=== PATIENT | female | born 1965 | race Caucasian/White ===

== ENCOUNTER 2017-01-02 14:45 | Emergency (ER) | payer OTHER ==
[~2017-01-02] VITALS: Ht 167.6 cm; Wt 61.0 kg
[2017-01-02 14:47] VITALS: BP 128/71; PULSE 99; RESP 20; TEMP 98.3; O2SAT 97
--- NOTE | 2017-01-02 15:08 | PD ---
HPI Chief Complaint: Numbness/Tingling Time Seen by Provider: 15:08 Travel History International Travel<30 days: No Contact w/Intl Traveler<30days: No Traveled to known affect area: No History of Present Illness HPI 51-year-old female presents to ED for evaluation of 6 months history of episodic , stabbing chest pain. Occurring both at rest and during exercise. Accompanied by shortness of breath. Immediately relieved by Tums or aspirin. Patient denies radiation of the pain, diaphoresis, nausea or vomiting associated with these episodes. She decided to come to the ED today after beginning to experience left-sided numbness and tingling. She states this was present upon awakening 3 days ago. She called her PCP, Dr. Calhoun, who recommended she come to the ED. The patient states that she has been busy and was only able to make time for the ED today. She denies weakness, limitations to range of motion, difficulties with word finding, facial droop. She is a current smoker. She denies family history of AL. States that she is perimenopausal, infrequent menses. Endorses unprotected sexual activity with a single male partner. PFSH Past Medical History ?: Not LMP: 11/28/16 Social History Tobacco Use: Yes Allergies-Medications (Allergen,Severity, Reaction): Coded Allergies: No Known Allergies (Unverified , 01/02/17) Review of Systems Except as stated in HPI: all other systems reviewed are Neg Physical Exam Narrative GENERAL: Well-nourished, well-developed white female in no acute distress. SKIN: Warm and dry. HEAD: Normocephalic. Atraumatic. EYES: No scleral icterus. No injection or drainage. PERRLA. EOMI. ENT: Pearly shea tympanic membranes bilaterally. Nasal mucosa is moist. Oropharynx without erythema, edema or exudate. NECK: Supple, trachea midline. No JVD or lymphadenopathy. No midline tenderness to palpation. Patient retains full, active, painless range of motion of the neck. CARDIOVASCULAR: Regular rate and rhythm without murmurs, gallops, or rubs. 2+ DP and radial pulses bilaterally. RESPIRATORY: Breath sounds clear and equal bilaterally. No accessory muscle use. GASTROINTESTINAL: Abdomen soft, non-tender, nondistended. + Bowel sounds MUSCULOSKELETAL: No cyanosis, or edema. NEUROLOGICAL: Awake and alert. Cranial nerves II through XII intact. No pronator drift. No difficulties with finger to nose testing. Motor and sensory grossly within normal limits. 5/5 muscle strength in all muscle groups. Normal speech. BACK: Nontender without obvious deformity. No CVA tenderness. No midline tenderness. tenderness. Data Data Last Documented VS Vital Signs Date Time Temp Pulse Resp B/P Pulse Ox O2 Delivery O2 Flow Rate FiO2 01/02/17 14:47 98.3 99 20 128/71 97 Room Air Orders Electrocardiogram (01/02/17 15:28) Basic Metabolic Panel (Bmp) (01/02/17 15:28) Ckmb (Isoenzyme) Profile (01/02/17 15:28) Complete Blood Count With Diff (01/02/17 15:28) Magnesium (Mg) (01/02/17 15:28) Prothrombin Time / Inr (Pt) (01/02/17 15:28) Act Partial Throm Time (Ptt) (01/02/17 15:28) Troponin I (01/02/17 15:28) Chest, Single Ap (01/02/17 15:28) Ct Brain W/O Iv Contrast(Rout) (01/02/17 15:28) Ed Urine Pregnancytest Poc (01/02/17 15:35) CKMB (01/02/17 15:40) CKMB% (01/02/17 15:40) Labs Laboratory Tests Test 01/02/17 15:40 White Blood Count 4.0 TH/MM3 Red Blood Count 3.73 MIL/MM3 Hemoglobin 12.0 GM/DL Hematocrit 35.3 % Mean Corpuscular Volume 94.5 FL Mean Corpuscular Hemoglobin 32.0 PG Mean Corpuscular Hemoglobin 33.9 % Concent Red Cell Distribution Width 13.1 % Platelet Count 211 TH/MM3 Mean Platelet Volume 8.9 FL Neutrophils (%) (Auto) 58.7 % Lymphocytes (%) (Auto) 26.1 % Monocytes (%) (Auto) 11.6 % Eosinophils (%) (Auto) 2.7 % Basophils (%) (Auto) 0.9 % Neutrophils # (Auto) 2.4 TH/MM3 Lymphocytes # (Auto) 1.1 TH/MM3 Monocytes # (Auto) 0.5 TH/MM3 Eosinophils # (Auto) 0.1 TH/MM3 Basophils # (Auto) 0.0 TH/MM3 CBC Comment DIFF FINAL Differential Comment Prothrombin Time 10.5 SEC Prothromb Time International 1.0 RATIO Ratio Activated Partial 26.0 SEC Thromboplast Time Sodium Level 140 MEQ/L Potassium Level 3.7 MEQ/L Chloride Level 105 MEQ/L Carbon Dioxide Level 29.4 MEQ/L Anion Gap 6 MEQ/L Blood Urea Nitrogen 12 MG/DL Creatinine 0.81 MG/DL Estimat Glomerular Filtration 75 ML/MIN Rate Random Glucose 98 MG/DL Calcium Level 8.5 MG/DL Magnesium Level 2.0 MG/DL Total Creatine Kinase 157 U/L Creatine Kinase MB 1.4 NG/ML Troponin I LESS THAN 0.02 NG/ML MDM Medical Decision Making Medical Screen Exam Complete: Yes Emergency Medical Condition: Yes Differential Diagnosis GERD versus angina versus ACS versus ICH versus electrolyte abnormality versus dehydration versus other Narrative Course 51-year-old female presents to ED for evaluation of 6 months history of episodic , stabbing chest pain. Occurring both at rest and during exercise. Accompanied by shortness of breath. Immediately relieved by Tums or aspirin. Denies radiation of the pain, diaphoresis, nausea or vomiting associated with these episodes. She decided to come to the ED today waking with left-sided facial, arm and leg numbness and tingling 3 days ago. She called her PCP, Dr. Calhoun, who recommended she come to the ED. The patient states that she has been busy and was only able to make time for the ED today. She denies weakness , limitations to range of motion, difficulties with word finding, facial droop. She is a current smoker. She denies family history of AL. Vitals reviewed. The patient is tachycardic on presentation but this resolves in the exam room. Physical exam reveals a nontoxic-appearing white female in no acute distress. Chest is clear to auscultation bilaterally. Abdomen soft and nontender. No focal neural deficits. No difficulties with finger to nose testing. No pronator drift. No edema in the extremities. Equal pulses in the extremities bilaterally. IV was established. CBC: No leukocytosis or anemia CMP: No derangement of the electrolytes. Cardiac enzymes: Negative EKG: Rate 79, sinus rhythm. PA interval 181, QRS 98, QTC 414. Normal axis. No ischemic changes. Reviewed by Dr. Gee and Dr. Guillen. Chest x-ray: No acute disease per radiology read. CT of the brain: No acute intracranial pathology per radiology read. I spoke with Dr. Calhoun. He states that he has ordered a full outpatient neurologic workup for the patient. He doubts cardiac origin of these symptoms, states that the patient regularly engages in very vigorous aerobic activity such as kickboxing. I reviewed the patient, workup and plan of care with Dr. Ambrose who is agreeable to discharge. I discussed the results of the workup with the patient and her family. Stressed the importance of follow-up with Dr. Calhoun. The patient was reassured by her negative CT scan and negative cardiac workup. She is instructed to rest, hydrate, follow up as planned. She indicated understanding of the instructions. She is amenable to plan of care. She is stable and discharged home. Diagnosis Primary Impression: Paresthesia of left upper limb Additional Impressions: Paresthesia of lower extremity Intermittent chest pain Referrals: Elliott Calhoun PhD MD Patient Instructions: Chest Pain (ED), General Instructions, Paresthesia (ED) Additional Instructions: Rest, hydrate. Follow-up with Dr. Calhoun as discussed. Return to the ED for any urgent or emergent medical condition. Disposition: 01 DISCHARGE HOME Condition: Stable Tram Zhang Jan 02, 2017 15:08
[2017-01-02 15:56] LABS: AUTOMATED NEUTROPHIL # 2.4 TH/MM3 (1.8-7.7); BASOPHIL % 0.9 % (0.0-2.0); EOSINOPHIL # 0.1 TH/MM3 (0-0.4); EOSINOPHIL % 2.7 % (0.0-4.0); HEMATOCRIT 35.3 % (35.0-46.0); HEMO FLAGS DIFF FINAL; LYMPH % 26.1 % (9.0-44.0); LYMPHOCYTE # 1.1 TH/MM3 (1.0-4.8); MEAN CELL VOLUME 94.5 FL (80.0-100.0); MEAN CORPUSCULAR HGB CONC 33.9 % (32.0-36.0); MONO % 11.6 % (0.0-8.0); NEUT % 58.7 % (16.0-70.0); PLATELET COUNT 211 TH/MM3 (150-450); RED BLOOD COUNT 3.73 MIL/MM3 (4.00-5.30); RED CELL DISTRIBUTION WIDTH 13.1 % (11.6-17.2)
[2017-01-02 15:59] LABS: PROTHROMBIN TIME - PATIENT 10.5 SEC (9.8-11.6)
--- NOTE | 2017-01-02 16:12 | RADRPT ---
EXAM DATE/TIME: 01/02/2017 15:35 [facility] COMPARISON: No previous studies available for comparison. INDICATIONS : Numbness left side of body x 1 week MEDICAL HISTORY : None. SURGICAL HISTORY : None. ENCOUNTER: Initial ACUITY: 1 week PAIN SCORE: 0/10 LOCATION: Bilateral chest FINDINGS: A single view of the chest demonstrates the lungs to be symmetrically aerated without evidence of mas s, infiltrate or effusion. The cardiomediastinal contours are unremarkable. Osseous structures are intact. CONCLUSION: No acute disease. Rickey Hale MD on January 02, 2017 at 16:09 Board Certified Radiologist. This report was verified electronically.
[2017-01-02 16:13] LABS: ANION GAP 6 MEQ/L (5-15); BICARBONATE 29.4 MEQ/L (21.0-32.0); BLOOD UREA NITROGEN 12 MG/DL (7-18); CHLORIDE 105 MEQ/L (98-107); GLOMERULAR FILTRATION RATE 75 ML/MIN (>89); POTASSIUM 3.7 MEQ/L (3.5-5.1); SODIUM (NA) 140 MEQ/L (136-145)
[2017-01-02 16:16] LABS: CREATINE KINASE 157 U/L (26-192)
[2017-01-02 16:28] LABS: CKMB 1.4 NG/ML (0.5-3.6)
--- NOTE | 2017-01-02 17:00 | RADRPT ---
EXAM DATE/TIME: 01/02/2017 16:50 [facility] COMPARISON: No previous studies available for comparison. INDICATIONS : Left sided numbness and tingling today. RADIATION DOSE: 40.08 CTDIvol (mGy) MEDICAL HISTORY : None SURGICAL HISTORY : None. ENCOUNTER: Initial ACUITY: 1 day PAIN SCALE: 0/10 LOCATION: Left cranial TECHNIQUE: Multiple contiguous axial images were obtained of the head. Using automated exposure control and adj ustment of the mA and/or kV according to patient size, radiation dose was kept as low as reasonably a chievable to obtain optimal diagnostic quality images. FINDINGS: CEREBRUM: The ventricles are normal for age. No evidence of midline shift, mass lesion, hemorrhage or acute in farction. No extra-axial fluid collections are seen. POSTERIOR FOSSA: The cerebellum and brainstem are intact. The 4th ventricle is midline. The cerebellopontine angle i s unremarkable. EXTRACRANIAL: The visualized portion of the orbits is intact. SKULL: The calvaria is intact. No evidence of skull fracture. CONCLUSION: No acute intracranial disease. Small right frontal scalp lesion. Rickey Hale MD on January 02, 2017 at 16:57 Board Certified Radiologist. This report was verified electronically.
[2017-01-02 18:38] VITALS: BP 128/68
--- NOTE | 2017-01-03 13:41 | EKG ---
Date Performed: 01/02/2017 Time Performed: 15:34:25 PTAGE: 51 years EKG: Sinus rhythm POSSIBLE LEFT ATRIAL ENLARGEMENT POSSIBLE RIGHT VENTRICULAR CONDUCTION DELAY BORDERLINE ECG NO PREVIOUS TRACING DOCTOR: Taina Hinojosa Interpretating Date/Time 01/03/2017 13:35:29
== END 2017-01-02 18:39 | disposition home or self-care (01) ==
LOC: NETRI 14:45
DX: R20.2 Paresthesia of skin (principal); R07.9 Chest pain, unspecified; R06.02 Shortness of breath; R94.31 Abnormal electrocardiogram [ECG] [EKG]; Z72.0 Tobacco use
CPT/HCPCS: 70450; 71010; 80048; 82550; 82552; 83735; 84484; 84703; 85025; 85610; 85730; 93005

== ENCOUNTER 2017-06-17 07:17 | Day surgery (SDC) | payer OTHER ==
[~2017-06-17] VITALS: Ht 171.4 cm; Wt 62.3 kg
[2017-06-17 07:31] VITALS: BP 137/92; PULSE 75; RESP 20; TEMP 98; O2SAT 99
[2017-06-17 07:54] LABS: AUTOMATED NEUTROPHIL # 1.6 TH/MM3 (1.8-7.7); BASOPHIL % 0.9 % (0.0-2.0); EOSINOPHIL # 0.2 TH/MM3 (0-0.4); EOSINOPHIL % 4.7 % (0.0-4.0); HEMATOCRIT 38.6 % (35.0-46.0); HEMO FLAGS DIFF FINAL; LYMPHOCYTE # 1.1 TH/MM3 (1.0-4.8); MEAN CELL VOLUME 94.3 FL (80.0-100.0); MEAN CORPUSCULAR HEMOGLOBIN 32.2 PG (27.0-34.0); MEAN CORPUSCULAR HGB CONC 34.1 % (32.0-36.0); MONO % 14.2 % (0.0-8.0); NEUT % 47.2 % (16.0-70.0); PLATELET COUNT 209 TH/MM3 (150-450); WHITE BLOOD COUNT 3.4 TH/MM3 (4.0-11.0)
[2017-06-17] MEDS ORDERED: SODIUM CHLOR 0.9% 1000 ML INJ 1,000 ML IV SCH (08:00)
[2017-06-17 08:08] LABS: POTASSIUM 3.3 MEQ/L (3.5-5.1)
[2017-06-17 08:21] LABS: APTT (PATIENT) 26.7 SEC (24.3-30.1); INTERNATIONAL NORMALIZED RATIO 0.9 RATIO
[2017-06-17 09:25] VITALS: BP 125/76; PULSE 61; RESP 20; TEMP 98.3; O2SAT 97
--- NOTE | 2017-06-17 09:25 | PD.RAD ---
Post Procedure Progress Note Pre Procedure Diagnosis: (1) Paresthesia of lower extremity Post Procedure Diagnosis: (1) Paresthesia of lower extremity Procedure Date: Jun 17, 2017 Supervising Radiologist: Abdifatah Mazariegos JR Proceduralist/Assist: Semaj Pimentel RT(R), Joselito Cohen RT(R) Anesthesia: Local Plan of Activity Patient to Unit: ROPU Patient Condition: Good See PACS Report for procedural detail/treatment Spinal Procedure Lumbar Puncture L3-L4 Fluid Removal (CCs): 17 Fluid Description: Clear Puncture Time: 09:08 Findings: Opening pressure: 18 cm H20 Jr. Yair,Abdifatah Bonilla MD Jun 17, 2017 09:25
[2017-06-17 09:49] VITALS: BP 116/78; PULSE 65; RESP 18; O2SAT 97
--- NOTE | 2017-06-17 10:07 | RADRPT ---
EXAM DATE/TIME: 06/17/2017 09:13 [facility] COMPARISON: No previous studies available for comparison. INDICATIONS : Patient presents left sided weakness in need of lumbar puncture for further evaluation. MEDICAL HISTORY : Smoking history Anxiety Back pain Bipolar CAD SURGICAL HISTORY : N/a ENCOUNTER: Initial ACUITY: 7 - 11 months PAIN SCORE: 0/10 LOCATION: N/A LUMBAR PUNCTURE TIME: 09:08 hours FLUORO TIME: 0.81 minutes ACCESS LEVEL: L3-4 OPENING PRESSURE: 18 cm of water CLOSING PRESSURE: Not requested. FLUID: 17.5 cc of clear CSF was collected and sent to the laboratory for analysis. PROCEDURE : 1. Fluoroscopic guided lumbar puncture. 2. Recording of opening pressure. The risks, benefits and alternatives to the procedure were explained and verbal and written consent w as obtained. The site was prepped in sterile fashion. Full sterile technique was used, including ca p, mask, sterile gloves and gown and a large sterile sheet. Hand hygiene and 2% chlorhexidine and/or betadine/alcohol prep was utilized per protocol for cutaneous antisepsis. The skin and subcutaneous tissues were infiltrated with local anesthetic solution. With fluoroscopic guidance the lumbar thecal sac was punctured at the above level described above and the opening pressure was recorded. The above described fluid was removed without difficulty. The patient tolerated the procedure well and there were no complications. CONCLUSION: Uncomplicated fluoroscopically guided lumbar puncture with pressures as above. Abdifatah Mazariegos Jr., MD on June 17, 2017 at 10:05 Board Certified Radiologist. This report was verified electronically.
[2017-06-17 10:32] LABS: GROSS BLOOD TUBE #1 0 (0); GROSS BLOOD TUBE #2 0 (0); SUPERNATE COLOR TUBE #1 CLEAR (CLEAR); SUPERNATE COLOR TUBE #2 CLEAR (CLEAR); VOLUME TUBE # 1 4.5 ML; WBC TUBE #1 0 /MM3 (0-10)
[2017-06-17 10:33] LABS: CSF LYMPHOCYTES 0 %; CSF NEUTROPHILS 0 %; GROSS BLOOD TUBE #3 0 (0); GROSS BLOOD TUBE #4 0 (0); SUPERNATE COLOR TUBE #3 CLEAR (CLEAR); SUPERNATE COLOR TUBE #4 CLEAR (CLEAR)
[2017-06-17 10:51] LABS: GROSS BLOOD TUBE #1 0 (0); GROSS BLOOD TUBE #2 0 (0); SUPERNATE COLOR TUBE #1 CLEAR (CLEAR); SUPERNATE COLOR TUBE #2 CLEAR (CLEAR); VOLUME TUBE # 1 4.5 ML
[2017-06-17 10:52] LABS: CSF LYMPHOCYTES 100 %; CSF NEUTROPHILS 0 %; GROSS BLOOD TUBE #3 0 (0); GROSS BLOOD TUBE #4 0 (0); SUPERNATE COLOR TUBE #3 CLEAR (CLEAR); SUPERNATE COLOR TUBE #4 CLEAR (CLEAR); WBC TUBE #4 2 /MM3 (0-10)
[2017-06-17 11:30] VITALS: BP 125/75; PULSE 61; RESP 20; O2SAT 97
[2017-06-18 10:44] LABS: HSV 1,PCR Negative (Negative)
[2017-06-18 23:20] LABS: CMV PCR SPECIMEN SOURCE LUMBAR PUNCTURE (()); LYME IGG IMMUNOBLOT CSF None Detected bands (None Detected); LYME IGM IMMUNOBLOT CSF None Detected bands (None Detected)
[2017-06-19 23:54] LABS: VZV PCR RESULT <500 (())
[2017-06-20 09:36] LABS: CSF CRYPTOCOCCUS AG CONF ND (NOT DETECTD)
== END 2017-06-17 12:00 | disposition home or self-care (01) ==
LOC: HROP 07:17 → HRIP 07:20 → HROP 12:00
PROVIDERS: ATTEND Psychiatry & Neurology Neurology
DX: R20.2 Paresthesia of skin (principal); R53.1 Weakness; I25.10 Atherosclerotic heart disease of native coronary artery without angina pectoris; G35 Multiple sclerosis; F31.9 Bipolar disorder, unspecified; F41.9 Anxiety disorder, unspecified; F17.200 Nicotine dependence, unspecified, uncomplicated
CPT/HCPCS: 62270; 77003; 80048; 82040; 82042; 82784; 82945; 83873; 83916; 84157; 85025; 85610; 85730; 86403; 86618; 87070; 87205; 87497; 87529; 87799; 89051; J7030